=== PATIENT | female | born 1965 | race Caucasian/White ===

== ENCOUNTER 2016-04-11 09:31 | Outpatient (CLI) | payer OTHER ==
[2016-04-11 18:16] LABS: ALBUMIN/GLOBULIN RATIO 1.5 (1.0-2.2); BUN - BLOOD UREA NITROGEN 10 mg/dL (6-20); CARBON DIOXIDE - CO2 29 mmol/L (21-32); CHLORIDE 101 mmol/L (101-111); CHOL/HDL RATIO 3.1 (<4.4); CHOLESTEROL 205 mg/dL; CREATININE 0.6 mg/dL (0.4-1.0); GFR - MDRD 105 (>89); GLUCOSE 82 mg/dL (70-100); HDL CHOLESTEROL 66 mg/dL; LDL/HDL RATIO 1.9 (<4.4); LIPASE 54 U/L (22-51); POTASSIUM 3.9 mmol/L (3.5-5.0); SODIUM 136 mmol/L (135-145); TOTAL PROTEIN 7.1 g/dL (6.7-8.2); TRIGLYCERIDES 73 mg/dL; VLDL CHOLESTEROL 15 mg/dL
[2016-04-11 18:23] LABS: BASOPHILS # (AUTO) 0.1 10^3/uL (0.0-0.1); BASOPHILS % (AUTO) 1.9 %; EOSINOPHILS # (AUTO) 0.2 10^3/uL (0.0-0.7); EOSINOPHILS % (AUTO) 3.6 %; HCT - HEMATOCRIT 38.3 % (37.0-47.0); HGB - HEMOGLOBIN 12.9 g/dL (12.0-16.0); LYMPHOCYTES # (AUTO) 1.5 10^3/uL (1.5-3.5); LYMPHOCYTES % (AUTO) 30.1 %; MEAN CORPUSCULAR HGB CONC 33.7 g/dL (32.0-36.0); MEAN PLATELET VOLUME 8.3 fL (7.9-10.8); MONOCYTES # (AUTO) 0.3 10^3/uL (0.0-1.0); MONOCYTES % (AUTO) 6.7 %; NEUTROPHILS # (AUTO) 2.8 10^3/uL (1.5-6.6); NEUTROPHILS % (AUTO) 57.7 %; NUCLEATED RED BLOOD CELLS AUTO 0.1 /100WBC; RED BLOOD COUNT 4.46 10^6/uL (4.20-5.40); RED CELL DISTRIBUTION WIDTH 12.4 % (12.0-15.0); UNCORRECTED WHITE BLOOD COUNT 4.8 x10^3/uL; WHITE BLOOD COUNT 4.8 x10^3/uL (4.8-10.8)
== END 2016-04-11 09:32 | disposition home or self-care (01) ==
LOC: LAB.F 09:31
PROVIDERS: ATTEND Nurse Practitioner Family
DX: R10.9 Unspecified abdominal pain (principal); Z13.6 Encounter for screening for cardiovascular disorders; F32.9 Major depressive disorder, single episode, unspecified
CPT/HCPCS: 36415; 80053; 80061; 83690; 84443; 85025

== ENCOUNTER 2016-05-20 10:43 | Outpatient (CLI) | payer OTHER | END 2016-05-20 10:44 | disposition home or self-care (01) | DX: Z12.31 Encounter for screening mammogram for malignant neoplasm of breast (principal); Z80.3 Family history of malignant neoplasm of breast ==

== ENCOUNTER 2016-05-20 10:45 | Outpatient (CLI) | payer OTHER | END 2016-05-20 10:46 | disposition home or self-care (01) | DX: R51 Headache (principal); R93.0 Abnormal findings on diagnostic imaging of skull and head, not elsewhere classified ==

== ENCOUNTER 2016-08-01 07:13 | Day surgery (SDC) | payer OTHER ==
[2016-08-01] MEDS ORDERED: LACTATED RINGERS 1,000 ML IV ONE (07:44)
--- NOTE | 2016-08-01 08:15 | HISTORY & PHYSICAL EXAMINATION ---
HPI - History of Present Illness HPI Comment/Other: History of Present Illness: Claudette is here for her first screening colonoscopy. She underwent a bowel prep without difficulty. Past Medical History: Reviewed history from 03/26/2016 and no changes required: Sciatica L>R Depression 2013 History of abnormal Pap, HPV high risk 1993 Hepatitis A infection ETOH - sober since 2013 Past Surgical History: Reviewed history from 03/25/2016 and no changes required: 2013 Colposcopy 2005 Pyelonephritis Family History Summary: Reviewed history and no changes required: 06/12/2016 Mother (biol.) - Has Family History of Hypertension - Entered On: 03/26/2016 Father (biol.) - Has Family History of Heart Disease - Entered On: 03/26/2016 Father (biol.) - Has Family History of Stroke/CVA - Entered On: 03/26/2016 Father (biol.) - Has a father - Entered On: 03/26/2016 Sister (full) - Has Family History of Heart Disease - arrythmia - Entered On: Sister (full) - Has Family History of Alcoholism - Entered On: 03/26/2016 Mother (biol.) - Has Family History of Depression - Entered On: 06/12/2016 Social History: Reviewed history and no changes required: Risk Factors: Smoked Tobacco Use: Former smoker Cigarettes: Yes Year started: 1993 Passive smoke exposure: no Drug use: no HIV high-risk behavior: yes Caffeine use: 3 drinks per day Alcohol use: no Review of Systems See HPI Physical Exam General: well developed, well nourished, in no acute distress Lungs: clear bilaterally to A & P Heart: regular rate and rhythm, S1, S2 without murmurs, rubs, gallops, or clicks Abdomen: bowel sounds positive; abdomen soft and non-tender without masses, organomegaly, or hernias noted Pulses: pulses normal in all 4 extremities Extremities: no clubbing, cyanosis, edema, or deformity noted with normal full range of motion of all joints Cervical Nodes: no significant adenopathy Psych: alert and cooperative; normal mood and affect; normal attention span and concentration Problem # 1: screening colon cancer All questions addressed. Will proceed with colonoscopy. 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 Social & Family Hx - Social History Does the pt smoke?: Yes Smoking Status: Current every day smoker Does the pt drink ETOH?: Yes Does the pt have substance abuse?: No - POLST Patient has POLST: No Meds/Allgy - Home Medications Home Medications: Ambulatory Orders Medication Instructions Recorded Confirmed No Known Home Medications [No 08/01/16 08/01/16 Known Home Medications] - Allergies Allergies/Adverse Reactions: Allergies Allergy/AdvReac Type Severity Reaction Status Date / Time Penicillins Allergy Itching Verified 11/10/14 08:34 codeine AdvReac Nausea Verified 11/10/14 08:34 Exam - Vital Signs Vital Signs: Vital Signs x48h Temp Pulse Resp BP Pulse Ox 08/01/16 07:21 36.4 C L 70 16 106/72 98
[2016-08-01] MEDS ORDERED: fentaNYL 100 MCG/2 ML VIAL IVP ONE (08:16)
[2016-08-01] MEDS ORDERED: MIDAZOLAM 2 MG/2 ML VIAL IVP ONE (08:16)
[2016-08-01 09:32] VITALS: BP 92/49
== END 2016-08-01 07:14 | disposition home or self-care (01) ==
LOC: SDS 07:13
PROVIDERS: ATTEND Surgery
PROC: 0DBK8ZX Excision of Ascending Colon, Via Natural or Artificial Opening Endoscopic, Diagnostic (ICD-10-PCS; principal; 2016-08-01 08:15)
DX: Z12.11 Encounter for screening for malignant neoplasm of colon (principal); D12.2 Benign neoplasm of ascending colon; Z87.891 Personal history of nicotine dependence; Z88.0 Allergy status to penicillin; Z88.5 Allergy status to narcotic agent
CPT/HCPCS: 45380; J7120; 88305

== ENCOUNTER 2016-08-05 07:57 | Outpatient (CLI) | payer OTHER ==
--- NOTE | 2016-08-05 12:11 | Ultrasound Report ---
RIGHT UPPER QUADRANT ULTRASOUND: 08/05/2016 CLINICAL INDICATION: Pain. TECHNIQUE: Real-time scanning was performed with route sales representative static images obtained. FINDINGS: The liver measures 14.2 cm. Hepatic echogenicity appears unremarkable. No solid parenchyma l lesion or intrahepatic biliary dilatation is present. A 6 mm cyst is incidentally noted. The common bile duct measures 6 mm. The gallbladder is normal. The right kidney measures 11 cm, and demonstrate s no hydronephrosis. No free fluid is present. IMPRESSION: INCIDENTAL LIVER CYST. NO EVIDENCE OF CHOLELITHIASIS OR BILIARY OBSTRUCTION. JOB #: [id number] EXT JOB #:[id number]
== END 2016-08-05 07:58 | disposition home or self-care (01) ==
LOC: DI 07:57
PROVIDERS: ATTEND Surgery
DX: R10.9 Unspecified abdominal pain (principal)
CPT/HCPCS: 76705

== ENCOUNTER 2016-10-02 11:25 | Emergency (ER) | payer OTHER ==
[2016-10-02] MEDS ORDERED: KETOROLAC 60 MG/2 ML VIAL IM STA (12:02)
--- NOTE | 2016-10-02 12:05 | ED Physician Documentation ---
History of Present Illness - Stated complaint Stated Complaint: LOW BACK PX - Chief complaint Chief Complaint: Abd Pain - Additonal information Additional information: hx from pt 51 female post menopausal to ER with R flank to RLQ pain worsening X 2 days no fever NVD no hematuria she is concerned she has a kidney stone pt also had a GB sono 1 month ago showing no stones Review of Systems Constitutional: denies: Fever, Chills Cardiac: denies: Chest pain / pressure Respiratory: denies: Dyspnea GI: reports: Abdominal Pain. 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 - Present Medications Home Medications: Ambulatory Orders Medication Instructions Recorded Confirmed HYDROcod/ACETAM 5/325 [Edmonds 5/325] 1 ea PO Q6H PRN #10 tablet 10/02/16 Ibuprofen [Motrin] 400 mg PO Q6H PRN #20 tablet 10/02/16 Sulfamethox/Trimeth 800/160 1 each PO BID #14 tablet 10/02/16 [Bactrim Ds 800/160] - Allergies Allergies/Adverse Reactions: Allergies Allergy/AdvReac Type Severity Reaction Status Date / Time Penicillins Allergy Itching Verified 10/02/16 11:44 codeine AdvReac Nausea Verified 10/02/16 11:44 - Social History Does the pt smoke?: Yes Smoking Status: Current every day smoker Does the pt drink ETOH?: Yes Does the pt have substance abuse?: No - Immunizations Immunizations are current?: Yes - POLST Patient has POLST: No PD ED PE NORMAL - Vitals Vital signs reviewed: Yes - Cardiac Cardiac: RRR - Respiratory Respiratory: No respiratory distress, Clear bilaterally - Abdomen Abdomen: Soft, Non tender - Back Back: No: No CVA TTP (R CVA TTP) - Derm Derm: Normal color - Psych Psych: Normal mood Results - Vitals Vitals: Vital Signs - 24 hr 10/02/16 10/02/16 11:42 13:40 Temperature 36.5 C 36.4 C L Heart Rate 64 61 Respiratory 14 16 Rate Blood Pressure 126/77 104/64 O2 Saturation 98 100 Oxygen O2 Source Room air - Labs Labs: Laboratory Tests 10/02/16 11:45 Urine Color LIGHT YELLOW Urine Clarity CLEAR Urine pH 7.5 Ur Specific Nunda <=1.005 Urine Protein NEGATIVE Urine Glucose (UA) NEGATIVE Urine Ketones NEGATIVE Urine Occult Blood NEGATIVE Urine Nitrite NEGATIVE Urine Bilirubin NEGATIVE Urine Urobilinogen 0.2 (NORMAL) Ur Leukocyte Esterase MODERATE H Urine RBC 0-5 Urine WBC 6-10 H Ur Squamous Epith Cells FEW Squamous Urine Bacteria Rare Ur Microscopic Review INDICATED Urine Culture Comments INDICATED Urine HCG, Qual NEGATIVE - Rads (name of study) CT AP Radiology: See rad report (no stones, no appy, non specific small FF) Departure - Departure Disposition: 01 Home, Self Care Clinical Impression: Pyelonephritis Condition: Good Instructions: ED Kidney Infec Female Follow-Up: Tawny Florez ARNP [Primary Care Provider] - Prescriptions: Sulfamethox/Trimeth 800/160 [Bactrim Ds 800/160] 1 each PO BID #14 tablet Ibuprofen [Motrin] 400 mg PO Q6H PRN #20 tablet PRN Reason: Pain HYDROcod/ACETAM 5/325 [Edmonds 5/325] 1 ea PO Q6H PRN #10 tablet PRN Reason: Severe Pain Comments: The CT scan did not show a kidney stone It also did not show appendicitis or gallbladder problems. The urine test does indicate you have a urine infection so the pain is likely due a kidney infection Forms: Activity restrictions
[2016-10-02] MEDS ORDERED: KETOROLAC 60 MG/2 ML VIAL ONE (12:21)
[2016-10-02 12:51] LABS: BILIRUBIN,URINE NEGATIVE (NEGATIVE); HCG UR QUAL NEGATIVE; PH,URINE 7.5 PH (5.0-7.5); UA w/ MICROSCOPIC CHARGE YES
[2016-10-02 12:52] LABS: UR CULTURE IF IND INDICATED
--- NOTE | 2016-10-02 13:32 | CT Preliminary Report ---
Exam: CT Abdomen/Pelvis W/O IMPRESSION: 1. Small free fluid in the pelvis. Nonspecific. 2. No urolithiasis or hydronephrosis. No other acute CT finding to explain symptoms. [facility] SITE ID: [id number]
--- NOTE | 2016-10-02 13:35 | CT Report ---
EXAM: CT ABDOMEN AND PELVIS (CT KUB) EXAM DATE: 10/02/2016 12:50 PM. CLINICAL HISTORY: R flank pain. COMPARISONS: None. TECHNIQUE: Routine axial helical CT imaging was performed through the abdomen and pelvis without IV c ontrast. Reconstructions: Coronal and sagittal. In accordance with CT protocol optimization, one or more of the following dose reduction techniques w ere utilized for this exam: automated exposure control, adjustment of mA and/or KV based on patient s ize, or use of iterative reconstructive technique. FINDINGS: Lung Bases: There are 2 calcified granulomas in the left lower lobe. Right Kidney/Ureter: No stones, hydronephrosis, or hydroureter. No perinephric fat stranding. Left Kidney/Ureter: No stones, hydronephrosis, or hydroureter. No perinephric fat stranding. Other Solid Organs: Noncontrast images of the solid organs are grossly unremarkable. Gallbladder/Bile Ducts: Unremarkable. Peritoneal Cavity: No free fluid, free air or hemanth adenopathy. Bowel is grossly unremarkable. Pelvic Organs: There is a small-volume free fluid within the posterior right adnexa measuring 2.5 x 1 .6 x 1.7 cm. Urinary bladder is unremarkable. Uterus is normal in size. Vasculature: Unremarkable. Other: None. IMPRESSION: 1. Small free fluid in the pelvis. Nonspecific. 2. No urolithiasis or hydronephrosis. No other acute CT finding to explain symptoms. [facility] Referring Provider Line: [phone] SITE ID: [id number]
[2016-10-02 13:40] VITALS: BP 104/64
== END 2016-10-02 14:01 | disposition home or self-care (01) ==
LOC: ED 11:25
DX: N12 Tubulo-interstitial nephritis, not specified as acute or chronic (principal); F17.200 Nicotine dependence, unspecified, uncomplicated
CPT/HCPCS: 74176; 81001; 81003; 81025; 87086; 96372; 99283

== ENCOUNTER 2016-11-12 14:19 | Outpatient (CLI) | payer OTHER ==
[2016-11-12 17:43] LABS: BASOPHILS # (AUTO) 0.1 10^3/uL (0.0-0.1); EOSINOPHILS # (AUTO) 0.1 10^3/uL (0.0-0.7); EOSINOPHILS % (AUTO) 1.7 %; HCT - HEMATOCRIT 38.9 % (37.0-47.0); HGB - HEMOGLOBIN 13.3 g/dL (12.0-16.0); LYMPHOCYTES # (AUTO) 2.2 10^3/uL (1.5-3.5); LYMPHOCYTES % (AUTO) 27.8 %; MEAN CORPUSCULAR HEMOGLOBIN 28.6 pg (27.0-31.0); MEAN CORPUSCULAR HGB CONC 34.3 g/dL (32.0-36.0); MEAN CORPUSCULAR VOLUME 83.4 fL (81.0-99.0); MEAN PLATELET VOLUME 7.7 fL (7.9-10.8); MONOCYTES # (AUTO) 0.4 10^3/uL (0.0-1.0); MONOCYTES % (AUTO) 5.4 %; NEUTROPHILS % (AUTO) 64.1 %; NUCLEATED RED BLOOD CELLS AUTO 0.1 /100WBC; RED BLOOD COUNT 4.66 10^6/uL (4.20-5.40); RED CELL DISTRIBUTION WIDTH 12.4 % (12.0-15.0); UNCORRECTED WHITE BLOOD COUNT 7.9 x10^3/uL; WHITE BLOOD COUNT 7.9 x10^3/uL (4.8-10.8)
[2016-11-12 17:58] LABS: ALBUMIN/GLOBULIN RATIO 1.5 (1.0-2.2); BILIRUBIN,TOTAL 0.7 mg/dL (0.2-1.0); CALCIUM 9.6 mg/dL (8.5-10.3); CREATININE 0.6 mg/dL (0.4-1.0); POTASSIUM 3.9 mmol/L (3.5-5.0); TOTAL PROTEIN 7.6 g/dL (6.7-8.2)
== END 2016-11-12 14:20 | disposition home or self-care (01) ==
LOC: LAB.F 14:19
PROVIDERS: ATTEND Nurse Practitioner Family
DX: N12 Tubulo-interstitial nephritis, not specified as acute or chronic (principal); R10.9 Unspecified abdominal pain
CPT/HCPCS: 36415; 80053; 82150; 83690; 85025

== ENCOUNTER 2016-11-13 10:02 | Outpatient (CLI) | payer OTHER ==
--- NOTE | 2016-11-13 17:58 | CT Report ---
CT ABDOMEN AND PELVIS WITHOUT CONTRAST: 11/13/2016 CLINICAL INDICATION: Pyelonephritis, abnormal pancreatic enzymes. TECHNIQUE: Axial CT images of the abdomen and pelvis were obtained without oral or intravenous contr ast. COMPARISON: 10/02/2016 FINDINGS: Limited evaluation of the lung bases demonstrates calcified granulomas. ABDOMEN: Allowing for the lack of intravenous contrast, the liver, spleen, kidneys and adrenal gland s appear unremarkable. There is mild inflammation around the pancreas, compatible with pancreatitis. No pseudocyst is seen. The gallbladder is not dilated. No bowel dilatation, free gas, or free flu id is present. No abdominal adenopathy is seen. PELVIS: The pelvic organs appear unremarkable. No distal hydroureter or ureterolithiasis is present . Previously seen free fluid in the pelvis has resolved. Osseous structures demonstrate degenerative changes. IMPRESSION: MILD PERIPANCREATIC INFLAMMATION, COMPATIBLE WITH PANCREATITIS. NO ABNORMAL FLUID COLLE CTION. RESOLUTION OF PREVIOUSLY SEEN FREE FLUID IN THE PELVIS. In accordance with CT protocol optimization, one or more of the following dose reduction techniques w ere utilized for this exam: automated exposure control, adjustment of mA and/or KV based on patient size, or use of iterative reconstructive technique. JOB #: [id number] EXT JOB #:[id number]
== END 2016-11-13 10:03 | disposition home or self-care (01) ==
LOC: DI 10:02
PROVIDERS: ATTEND Nurse Practitioner Family
DX: K85.90 Acute pancreatitis without necrosis or infection, unspecified (principal); R10.9 Unspecified abdominal pain; N12 Tubulo-interstitial nephritis, not specified as acute or chronic
CPT/HCPCS: 74176

== ENCOUNTER 2016-11-25 08:43 | Outpatient (CLI) | payer OTHER ==
--- NOTE | 2016-11-25 10:44 | Nuclear Medicine Report ---
EXAM: HEPATOBILIARY SCAN EXAM DATE: 11/25/2016 10:26 AM. CLINICAL HISTORY: ABDOMINAL PAIN, ELEVATED PANCREATIC ENZYME. COMPARISON: CT 11/13/2016 TECHNIQUE: Following the intravenous administration of 5.2 mCi of Tc99m Mebrofenin, a hepatobiliary s can was done centered on the right upper quadrant region in multiple sequential images and projection s. Morphine sulfate given: No. Four-hour delayed images performed: No. FINDINGS: Normal extraction of tracer from the blood pool indicating normal hepatocellular function. The liver size and shape is grossly within normal limits. There is activity visualized within the bile ducts, gallbladder, and small bowel within the first daily r. No enterogastric bile reflux is observed. IMPRESSION: 1. Patent cystic duct. 2. Patent common bile duct. 3. Negative for acute cholecystitis. 4. No enterogastric bile reflux. [facility] Referring Provider Line: [phone] SITE ID: [id number]
== END 2016-11-25 08:44 | disposition home or self-care (01) ==
LOC: DI 08:43
PROVIDERS: ATTEND Nurse Practitioner Family
DX: R10.9 Unspecified abdominal pain (principal); R74.8 Abnormal levels of other serum enzymes
CPT/HCPCS: 78226; A9537

== ENCOUNTER 2016-11-27 14:12 | Outpatient (CLI) | payer OTHER ==
[2016-11-27 18:50] LABS: AMYLASE 113 U/L (28-100); BILIRUBIN,TOTAL 0.6 mg/dL (0.2-1.0); LIPASE 61 U/L (22-51)
[2016-11-27 18:56] LABS: BILIRUBIN,DIRECT < 0.1 mg/dL (0.1-0.5)
== END 2016-11-27 14:13 | disposition home or self-care (01) ==
LOC: LAB.F 14:12
PROVIDERS: ATTEND Family Medicine
DX: R10.9 Unspecified abdominal pain (principal)
CPT/HCPCS: 36415; 80076; 82150; 83690

== ENCOUNTER 2016-12-09 02:51 | Emergency (ER) | payer OTHER ==
[2016-12-09 03:26] LABS: BILIRUBIN,URINE NEGATIVE (NEGATIVE)
[2016-12-09 03:27] LABS: UA CHARGE (STRIP ONLY) YES; UR CULTURE IF IND NOT INDICATED
--- NOTE | 2016-12-09 05:09 | ED Physician Documentation ---
PD HPI BACK PAIN - Stated complaint Stated Complaint: R BACK PAIN - Chief complaint Chief Complaint: Back Pain - History obtained from History obtained from: Patient - History of Present Illness Timing - onset: Enter time (23:00), Today Timing - duration: Hours Timing - details: Gradual onset, Constant, Waxing and waning Pain level now: 6 Location: Right Quality: Pain Associated symptoms: No: Fever Improves with: Nothing Worsened by: Palpation Similar symptoms before: Other (some aspects of tonights symptoms are similar to previous episodes) Recently seen: Not recently seen Review of Systems Constitutional: reports: Reviewed and negative Cardiac: reports: Reviewed and negative Respiratory: reports: Reviewed and negative GI: reports: Abdominal Pain. 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 - Present Medications Home Medications: Ambulatory Orders Medication Instructions Recorded Confirmed traMADol [Ultram] 50 - 100 mg PO Q6H PRN #20 tablet 12/09/16 - Allergies Allergies/Adverse Reactions: Allergies Allergy/AdvReac Type Severity Reaction Status Date / Time Penicillins Allergy Itching Verified 12/09/16 02:58 codeine AdvReac Nausea Verified 12/09/16 02:58 - Social History Does the pt smoke?: No Smoking Status: Former smoker Does the pt drink ETOH?: Yes Does the pt have substance abuse?: No - Immunizations Immunizations are current?: Yes - POLST Patient has POLST: No PD ED PE NORMAL - Vitals Vital signs reviewed: Yes - General General: Alert and oriented X 3, No acute distress, Well developed/nourished - HEENT HEENT: Moist mucous membranes - Cardiac Cardiac: RRR, No murmur - Respiratory Respiratory: No respiratory distress, Clear bilaterally - Abdomen Abdomen: Soft, Non distended - Back Back: No CVA TTP - Derm Derm: Normal color, Warm and dry, No rash - Extremities Extremities: No edema PD ED PE EXPANDED - Abdomen Abdomen: Tender to palpation, RUQ, RLQ Results - Vitals Vitals: Oxygen O2 Source Room air - Labs Labs: Laboratory Tests 12/09/16 12/09/16 12/09/16 03:00 06:00 06:00 WBC 6.1 RBC 4.42 Hgb 12.7 Hct 37.5 MCV 84.8 MCH 28.7 MCHC 33.9 RDW 13.1 Plt Count 254 MPV 7.5 L Neut # 3.0 Lymph # 2.4 Holt # 0.4 Eos # 0.2 Baso # 0.1 Absolute Nucleated RBC 0.00 Nucleated RBC % 0.0 Sodium 136 Potassium 3.8 Chloride 103 Carbon Dioxide 26 Anion Gap 7.0 BUN 15 Creatinine 0.5 Estimated GFR (MDRD) 130 Glucose 92 Calcium 9.1 Total Bilirubin 0.6 AST 21 ALT 15 Alkaline Phosphatase 72 Total Protein 7.7 Albumin 4.4 Globulin 3.3 Albumin/Globulin Ratio 1.3 Amylase Lipase 64 H Urine Color LT. YELLOW Urine Clarity CLEAR Urine pH 7.0 Ur Specific Carver <=1.005 Urine Protein NEGATIVE Urine Glucose (UA) NEGATIVE Urine Ketones NEGATIVE Urine Occult Blood TRACE-INTA Urine Nitrite NEGATIVE Urine Bilirubin NEGATIVE Urine Urobilinogen 0.2 (NORMAL) Ur Leukocyte Esterase NEGATIVE Ur Microscopic Review NOT INDICATED Urine Culture Comments NOT INDICATED 12/09/16 06:00 WBC RBC Hgb Hct MCV MCH MCHC RDW Plt Count MPV Neut # Lymph # Holt # Eos # Baso # Absolute Nucleated RBC Nucleated RBC % Sodium Potassium Chloride Carbon Dioxide Anion Gap BUN Creatinine Estimated GFR (MDRD) Glucose Calcium Total Bilirubin AST ALT Alkaline Phosphatase Total Protein Albumin Globulin Albumin/Globulin Ratio Amylase 123 H Lipase Urine Color Urine Clarity Urine pH Ur Specific Carver Urine Protein Urine Glucose (UA) Urine Ketones Urine Occult Blood Urine Nitrite Urine Bilirubin Urine Urobilinogen Ur Leukocyte Esterase Ur Microscopic Review Urine Culture Comments - Rads (name of study) CT A/P Radiology: Prelim report reviewed, See rad report PD MEDICAL DECISION MAKING - ED course Complexity details: reviewed old records, reviewed results, re-evaluated patient , considered differential, d/w patient ED course: right flank, back, and upper quadrant pain tonight with right upper and right lower quadrant tenderness on exam. She has had similar symptoms in the past with both unremarkable results as well as pyelonephritis. She says the right lower quadrant tenderness is new for her, and thus CT A/P performed for possible appendicitis. CT shows no acute pathology, d/c home with instructions to return if worse and follow up with PMD Departure - Departure Disposition: 01 Home, Self Care Clinical Impression: Abdominal pain Condition: Good Instructions: ED Abdominal Pain Unkn Cause Follow-Up: Tawny Florez ARNP [Primary Care Provider] - Prescriptions: traMADol [Ultram] 50 - 100 mg PO Q6H PRN #20 tablet PRN Reason: Pain Discharge Date/Time: 12/09/16 09:12
[2016-12-09 06:10] LABS: BASOPHILS # (AUTO) 0.1 10^3/uL (0.0-0.1); BASOPHILS % (AUTO) 0.9 %; EOSINOPHILS # (AUTO) 0.2 10^3/uL (0.0-0.7); EOSINOPHILS % (AUTO) 3.6 %; HCT - HEMATOCRIT 37.5 % (37.0-47.0); HGB - HEMOGLOBIN 12.7 g/dL (12.0-16.0); LYMPHOCYTES # (AUTO) 2.4 10^3/uL (1.5-3.5); LYMPHOCYTES % (AUTO) 39.2 %; MEAN CORPUSCULAR HEMOGLOBIN 28.7 pg (27.0-31.0); MEAN CORPUSCULAR HGB CONC 33.9 g/dL (32.0-36.0); MEAN CORPUSCULAR VOLUME 84.8 fL (81.0-99.0); MEAN PLATELET VOLUME 7.5 fL (7.9-10.8); MONOCYTES # (AUTO) 0.4 10^3/uL (0.0-1.0); MONOCYTES % (AUTO) 6.9 %; NEUTROPHILS % (AUTO) 49.4 %; RED BLOOD COUNT 4.42 10^6/uL (4.20-5.40); RED CELL DISTRIBUTION WIDTH 13.1 % (12.0-15.0); UNCORRECTED WHITE BLOOD COUNT 6.1 x10^3/uL; WHITE BLOOD COUNT 6.1 x10^3/uL (4.8-10.8)
[2016-12-09] MEDS ORDERED: KETOROLAC 60 MG/2 ML VIAL IVP STA (06:13)
[2016-12-09 06:22] LABS: ALBUMIN/GLOBULIN RATIO 1.3 (1.0-2.2); BILIRUBIN,TOTAL 0.6 mg/dL (0.2-1.0); CALCIUM 9.1 mg/dL (8.5-10.3); CREATININE 0.5 mg/dL (0.4-1.0); POTASSIUM 3.8 mmol/L (3.5-5.0); TOTAL PROTEIN 7.7 g/dL (6.7-8.2)
[2016-12-09] MEDS ORDERED: KETOROLAC 30 MG/ML VIAL ONE (06:25)
[2016-12-09] MEDS ORDERED: IOPAMIDOL-300 100 ML VIAL ONE (06:32)
[2016-12-09] MEDS ORDERED: IOPAMIDOL-300 100 ML VIAL IVP ONE (06:50)
--- NOTE | 2016-12-09 07:35 | CT Preliminary Report ---
Exam: CT Abdomen/Pelvis W/ IMPRESSION: 1. Appendix not identified but no pericecal inflammatory changes. 2. No renal calcifications, no hydronephrosis. 3. Diverticulosis. Increased fecal material [facility] SITE ID: [id number]
--- NOTE | 2016-12-09 07:37 | CT Report ---
EXAM: CT ABDOMEN AND PELVIS EXAM DATE: 12/09/2016 07:02 AM. CLINICAL HISTORY: RLQ pain, tenderness. COMPARISONS: None. TECHNIQUE: Routine helical CT imaging was performed through the abdomen and pelvis. IV contrast: 100 cc Isovue-300. Enteric contrast: No. Reconstructions: Coronal and sagittal. In accordance with CT protocol optimization, one or more of the following dose reduction techniques w ere utilized for this exam: automated exposure control, adjustment of mA and/or KV based on patient s ize, or use of iterative reconstructive technique. FINDINGS: Lung Bases: Calcified granuloma Liver: Subcentimeter density too small to characterize near the diaphragm No masses. Gallbladder/Bile Ducts: Unremarkable. Spleen: Normal. Pancreas: Normal. Adrenal Glands: Normal. Kidneys: Normal. No masses or hydronephrosis. Peritoneal Cavity/Bowel: Diverticulosis No free fluid, free air or significant adenopathy. Small righ t lower quadrant, mesenteric lymph nodes less than 1 cm No masses or acute inflammatory process. The appendix is not identified but no pericecal inflammatory changes.. Increased fecal material Pelvic Organs: Normal. The bladder and visualized pelvic organs are within normal limits. Vasculature: No aneurysms or other significant abnormality. Bones: DJD spine Other: None. IMPRESSION: 1. Appendix not identified but no pericecal inflammatory changes. 2. No renal calcifications, no hydronephrosis. 3. Diverticulosis. Increased fecal material [facility] Referring Provider Line: [phone] SITE ID: [id number]
[2016-12-09 09:12] VITALS: BP 124/80
== END 2016-12-09 09:12 | disposition home or self-care (01) ==
LOC: ED 02:51
DX: M54.9 Dorsalgia, unspecified (principal); R10.31 Right lower quadrant pain; R10.11 Right upper quadrant pain; Z87.891 Personal history of nicotine dependence
CPT/HCPCS: 36415; 74177; 80053; 81003; 82150; 83690; 85025; 96374; 99283; 99284; Q9967; 81001; 87086

== ENCOUNTER 2017-12-10 12:52 | Outpatient (CLI) | payer OTHER ==
--- NOTE | 2017-12-10 16:13 | XRAY Report ---
Reason: THORACIC BACK PAIN,CHEST PAIN ,ACUTE Procedure Date: 12/10/2017 Accession Number: [id number] / [id number] Procedure: XR - Thoracic Spine 2 View CPT Code: FULL RESULT: EXAM: THORACIC SPINE RADIOGRAPHY EXAM DATE: 12/10/2017 01:05 PM. CLINICAL HISTORY: Thoracic back pain, chest pain, acute. COMPARISON: None. TECHNIQUE: 2 views. FINDINGS: Alignment: Normal. No spondylolisthesis or scoliosis. Bones: No fractures or bone lesions. Disks: Normal. Disk heights are maintained. Soft Tissues: Normal. The visualized lungs and cardiomediastinal silhouette are normal. IMPRESSION: Normal thoracic spine radiography. [facility]
--- NOTE | 2017-12-10 16:13 | XRAY Report ---
Reason: THORACIC BACK PAIN,CHEST PAIN ,ACUTE Procedure Date: 12/10/2017 Accession Number: [id number] / [id number] Procedure: XR - Chest 2 View X-Ray CPT Code: 36535 FULL RESULT: EXAM: CHEST RADIOGRAPHY EXAM DATE: 12/10/2017 01:04 PM. CLINICAL HISTORY: Thoracic back pain, chest pain, acute. COMPARISON: 02/04/2013 10:20 AM. TECHNIQUE: 2 views. FINDINGS: Lungs/Pleura: No focal opacities evident. No pleural effusion. No pneumothorax. Normal volumes. Mediastinum: Heart and mediastinal contours are unremarkable. Other: None. IMPRESSION: Normal 2-view chest radiography. [facility]
== END 2017-12-10 12:53 | disposition home or self-care (01) ==
LOC: DI 12:52
PROVIDERS: ATTEND Nurse Practitioner Family
DX: M54.6 Pain in thoracic spine (principal); R07.89 Other chest pain
CPT/HCPCS: 71046; 72070

== ENCOUNTER 2018-11-12 12:40 | Outpatient (CLI) | payer OTHER ==
--- NOTE | 2018-11-16 16:35 | Mammography Report ---
Reason: ROUTINE MAMMO Procedure Date: 11/12/2018 Accession Number: [id number] / [id number] Procedure: ROSY - Screening Mammo w/Mason CPT Code: FULL RESULT: EXAM: Screening Mammo w/Mason DATE: 11/12/2018 1:21 PM CLINICAL HISTORY: Routine screening TECHNIQUE: (B) - Bilateral CC and MLO views were obtained. COMPARISON: 05/20/2016, 01/20/2015, 03/10/2013 and 09/19/1809 PARENCHYMAL PATTERN: (VD) - The breasts demonstrate extremely dense parenchyma bilaterally, limiting the sensitivity of mammography. FINDINGS: No significant interval change. There are no suspicious masses, calcifications, or areas of distortion. IMPRESSION: Negative examination. BI-RADS category 1. RECOMMENDATION: (ANNUAL) - Recommend routine annual screening mammography. BI-RADS CATEGORY: (1) - Negative. STANDARD QUALIFYING STATEMENTS: 1. This examination was not reviewed with the aid of Computer-Aided Detection (CAD). 2. A negative or benign imaging report should not preclude biopsy if clinically suspicious findings are present. 3. Dense breasts may obscure an underlying neoplasm. 4. This examination was reviewed with the aid of 3D breast imaging (tomosynthesis).
== END 2018-11-12 12:41 | disposition home or self-care (01) ==
LOC: DI 12:40
PROVIDERS: ATTEND Nurse Practitioner
DX: Z12.31 Encounter for screening mammogram for malignant neoplasm of breast (principal)
CPT/HCPCS: 77063; 77067

== ENCOUNTER 2018-11-12 12:42 | Outpatient (CLI) | payer OTHER ==
--- NOTE | 2018-11-16 13:12 | DEXA Report ---
Reason: POSTMENOPAUSAL Procedure Date: 11/12/2018 Accession Number: [id number] / [id number] Procedure: DEX - Dexa Spine and/or Hip CPT Code: FULL RESULT: EXAM: Dexa Spine and/or Hip DATE: 11/12/2018 12:59 PM CLINICAL HISTORY: POSTMENOPAUSAL TECHNIQUE: Dual energy x-ray absorptiometry (DXA) was performed on a virtual [employer] System. Regions measured are the AP Spine, femoral neck, and if needed forearm. COMPARISON: None. In accordance with the International Society for Clinical Densitometry (ISCD) guidelines, data from previous exams may be reanalyzed using current recommendations and techniques. This is done to allow a more accurate basis for comparison with the current study. FINDINGS: The data for the lumbar spine is as follows: BMD (g/cm/cm) T-SCORE Z-SCORE REGION L1 0.962 -1.4 -0.9 L2 1.000 -1.7 -1.1 L3 1.031 -1.4 -0.9 L4 1.117 -0.7 -0.1 TOTAL 1.031 -1.2 -0.7 NOTE: All evaluable vertebrae are used for classification The data for the hip is as follows: BMD (g/cm/cm) T-SCORE Z-SCORE REGION Neck 0.882 -1.1 -0.3 TOTAL 0.856 -1.2 -0.7 NOTE: The femoral neck or total proximal femur, whichever is lowest, is used for classification. IMPRESSION: THE WHO CLASSIFICATION BASED ON THE INTERNATIONAL REFERENCE STANDARD IS OSTEOPENIA. THE FRACTURE RISK IS INCREASED. RECOMMENDATION: Patients with diagnosis of osteoporosis or osteopenia should have regular bone mineral density assessment. For those eligible for Medicare, routine testing is allowed once every 2 years. Testing frequency can be increased for patients who have rapidly progressing disease or for those who are receiving medical therapy to restore bone mass. COMMENT: World Health Organization (WHO) definitions for osteoporosis and osteopenia: NORMAL BMD: T-score at -1.0 or higher, fracture risk is low OSTEOPENIA BMD: T-score between -1.0 and -2.5, fracture risk is increased. OSTEOPOROSIS BMD: T-score at -2.5 or lower, fracture risk is high. National Osteoporosis Foundation recommends: 1. Obtain adequate dietary calcium (at least 1200 mg per day) and vitamin D (400-800 international units per day). 2. Participate, as appropriate, in regular weightbearing and muscle-strengthening exercise. 3. Avoid tobacco use and reduce alcohol and caffeine intake. 4. For more detailed information see the website at www.NOF.org.
== END 2018-11-12 12:43 | disposition home or self-care (01) ==
LOC: DI 12:42
PROVIDERS: ATTEND Nurse Practitioner
DX: Z13.820 Encounter for screening for osteoporosis (principal); M85.89 Other specified disorders of bone density and structure, multiple sites; Z78.0 Asymptomatic menopausal state
CPT/HCPCS: 77080

== ENCOUNTER 2020-02-21 07:40 | Outpatient (CLI) | payer OTHER ==
[2020-02-21 15:32] LABS: BASOPHILS # (AUTO) 0.1 10^3/uL (0.0-0.1); BASOPHILS % (AUTO) 1.2 %; EOSINOPHILS # (AUTO) 0.2 10^3/uL (0.0-0.7); HGB - HEMOGLOBIN 13.3 g/dL (12.0-16.0); LYMPHOCYTES # (AUTO) 1.9 10^3/uL (1.5-3.5); MEAN CORPUSCULAR HEMOGLOBIN 28.8 pg (27.0-31.0); MEAN CORPUSCULAR VOLUME 92.9 fL (81.0-99.0); MEAN PLATELET VOLUME 9.8 fL (7.9-10.8); MONOCYTES # (AUTO) 0.3 10^3/uL (0.0-1.0); MONOCYTES % (AUTO) 6.4 %; NEUTROPHILS # (AUTO) 2.6 10^3/uL (1.5-6.6); NEUTROPHILS % (AUTO) 51.4 %; PLT - PLATELET COUNT 323 10^3/uL (130-450); RED BLOOD COUNT 4.62 10^6/uL (4.20-5.40); RED CELL DISTRIBUTION WIDTH 12.2 % (12.0-15.0)
[2020-02-21 15:54] LABS: BUN - BLOOD UREA NITROGEN 11 mg/dL (6-20); CALCIUM 9.5 mg/dL (8.5-10.3); CARBON DIOXIDE - CO2 29 mmol/L (21-32); CHLORIDE 100 mmol/L (101-111); CREATININE 0.7 mg/dL (0.4-1.0); GLUCOSE 85 mg/dL (70-100); SODIUM 139 mmol/L (135-145)
[2020-02-21 15:55] LABS: ALBUMIN 4.5 g/dL (3.2-5.5); ALBUMIN/GLOBULIN RATIO 1.4 (1.0-2.2); ALKALINE PHOSPHATASE 74 IU/L (42-121); ALT ALANINE AMINOTRANSFERASE 13 IU/L (10-60); AST ASPARTATE AMINOTRANSFERASE 18 IU/L (10-42); BILIRUBIN,TOTAL 0.7 mg/dL (0.2-1.0); CHOL/HDL RATIO 3.4 (<4.4); CHOLESTEROL 213 mg/dL; HDL CHOLESTEROL 62 mg/dL; LDL CHOLESTEROL,CALCULATED 137 mg/dL; LDL/HDL RATIO 2.2 (<4.4); TOTAL PROTEIN 7.7 g/dL (6.7-8.2); VLDL CHOLESTEROL 14 mg/dL
[2020-02-21 16:39] LABS: FREE T4 (FREE THYROXINE) 1.06 ng/dL (0.58-1.64)
[2020-02-21 20:17] LABS: HEMOGLOBIN A1c% 5.1 % (4.27-6.07)
[2020-02-22 13:35] LABS: HEPATITIS C ANTIBODY NON-REACTIVE (NON-REACTIVE)
== END 2020-02-21 07:41 | disposition home or self-care (01) ==
LOC: LAB.S 07:40
PROVIDERS: ATTEND Registered Nurse
DX: Z01.84 Encounter for antibody response examination (principal); Z78.0 Asymptomatic menopausal state; F32.9 Major depressive disorder, single episode, unspecified; Z13.220 Encounter for screening for lipoid disorders
CPT/HCPCS: 36415; 80053; 80061; 83036; 83721; 84439; 84443; 85025; 86803

== ENCOUNTER 2020-10-02 10:56 | Outpatient (CLI) | payer OTHER ==
--- NOTE | 2020-10-03 13:56 | Mammography Report ---
BILATERAL DIGITAL SCREENING MAMMOGRAM 3D/2D: 10/02/2020 CLINICAL: Family history of breast cancer. Comparison is made to exams dated: 11/12/2018 mammogram, 05/20/2016 mammogram, and 01/20/2015 mammogra m - [facility]. The tissue of both breasts is heterogeneously dense. This may lowe r the sensitivity of mammography. No significant masses, calcifications, or other findings are seen in either breast. There has been no significant interval change. IMPRESSION: NEGATIVE There is no mammographic evidence of malignancy. A 1 year screening mammogram is recommended. This exam was interpreted at Station ID: [id number]. NOTE: For mammograms, a report in lay terms will be sent to the patient. Approximately 15% of breast malignancies will not be visualized mammographically. In the management of a palpable breast mass, a negative mammogram must not discourage biopsy of a clinically suspicious lesion. Electronically Signed By: Jason Gomez M.D. aty/penrad:10/02/2020 13:26:05 ACR BI-RADS Category 1: Negative 3341F PARENCHYMAL PATTERN: (D) - The breast(s) demonstrate(s) heterogeneously dense fibroglandular parshira ma. BI-RADS CATEGORY: (1) - 1 RECOMMENDATION: (ANNUAL) - Recommend routine annual screening mammography. [id number] 1 year screening LATERALITY: (B)
== END 2020-10-02 10:57 | disposition home or self-care (01) ==
LOC: DI.S 10:56
DX: Z12.31 Encounter for screening mammogram for malignant neoplasm of breast (principal); Z80.3 Family history of malignant neoplasm of breast

== ENCOUNTER 2023-02-20 10:52 | Outpatient (CLI) | payer OTHER ==
--- NOTE | 2023-02-20 11:28 | Sleep Patient Instructions ---
Sleep Center Visit Summary - Patient Visit Information Reason for Visit: Initial consult for evaluation of sleep disordered breathing and other sleep issues. - Patient Instructions Instructions Attached: Sleep Study, Sleep Study Home Monitor Additional Instructions: You will be completing a sleep study, either an in-lab polysomnography (PSG) or home sleep study (HST). You will follow-up in the sleep care office after the sleep study is completed to hear the results and talk about therapy, if needed. You will be called by our office staff to schedule this appointment, but you may contact us with any questions. - Clinic Information Contact: [facility] [address] [place] [id number] [email or web address] T: [phone]
--- NOTE | 2023-02-20 11:32 | SLEEP CARE CONSULTATION ---
Information from patient questionnaire entered by Kamilla Swift. I have reviewed and concur with the information entered by Kamilla Swift. This document represents the service I personally performed and the decisions made by me, Lisa Godoy ARNP. History of Present Illness Service Date and Time: 02/20/2023 1052 Reason for Visit: New patient Chief Complaint: reports: Insomnia, Unrefreshed sleep, Fatigue, Frequent awakenings at night Date of Onset: 10YRS Usual bedtime: 1030PM Time it takes to fall asleep: 10-120MIN Snores at night: Yes Observed to quit breathing while asleep: No Sleeps alone due to snoring: No Number of times waking at night: 2-4 Reasons for waking at night: reports: Bathroom, Other (UNKNOWN,DREAMS). denies: Choking, Gasping for air Toss, Turn, or Twitch while sleeping: Yes Recalls having dreams: Yes (occasional nightmares) Usually gets out of bed at: [id number] Feels refreshed in the morning: No Morning headache: Yes (6-7 days a week; sometimes all day) Sleepy or fatigued during the day: Yes Ever fallen asleep while driving: No Takes day naps: No Dreams during day naps: No Prior sleep studies: No Additional HPI information: I had the pleasure of seeing ANAND TOSCANO today regarding the possibility of her having a sleep disorder. Her current complaints are insomnia, unrefreshed sleep, fatigue and frequent night awakenings. She says that since menopause she has been having more difficulties with fatigue. She saw her PCP for this and they are looking into causes. She has been gaining weight and has always been a very normal weight. She is not as active as she used to be in the past. She wakes up with a tense jaw and does grind her teeth. She had a friend give her a Fitbit and it told her she woke up 37 times but she is only aware of waking up 2-4 times on average. She wakes up with a headache nearly every day and they can stay all day. She has been told by her that she snores occasionally. - Parasomnia Symptoms Ever been unable to move upon waking from sleep: No Walks in sleep: No Talks in sleep: Yes Ever acted out dreams in sleep: No Ever felt weak in the knees when startled or emotional: No Bothered by creepy, crawly, restless sensations in legs: No Problems with memory or concentration: No Subjective Initial [place] Sleepiness Scale score: 3 (L103/23/22) Past Medical History Past Medical History: reports: Anxiety, Depression Social History The patient's occupation is a UNEMPLOYED. Patient is and lives in [place]. Have you smoked in the past 12 months: No Cigarettes per day (20/pack): 40 Years of smokin Smoking Pack Years: 18.0 Alcohol use: No Alcohol amount and frequency: CLEAN AND SOBER SINCE 06/18/2014 Caffeine use: Yes Caffeine amount and frequency: 200-300MG EVERY MORNING Family History Family history of sleep disordered breathing: Yes Family Hx Sleep Apnea: Mother: Snoring Allergies and Home Medications Known drug allergies: Yes ( LISTED) Drug allergies reviewed: Yes Home medication list reviewed: Yes (vit C, D3, Multvitamin, Magnesium) Allergy and home medication list: Allergies Penicillins Allergy (Verified 02/20/23 11:01) Itching bupropion Adverse Reaction (Verified 02/20/23 11:17) Unknown codeine Adverse Reaction (Verified 02/20/23 11:01) Nausea Review of Systems Weight gain over past 5 years: 20 Cardiovascular: denies: high blood pressure Gastrointestinal: denies: heartburn Neurological: reports: headaches Psychiatric: reports: anxiety, depression Ear/Nose/Throat: reports: wisdom teeth removed. denies: tonsillectomy Endocrine: reports: sluggishness Musculoskeletal: reports: neck pain, back pain Physical Exam Vital signs obtained and entered by: KAMILLA Hernandez MA Blood Pressure: 115/81 (LEFT ARM) Cuff size: regular Heart Rate: 79 O2 Saturation: 97 Height: 5 ft 8 in Weight: 168 lb 6.4 oz Body Mass Index: 25.6 BMI Classification: Overweight Neck circumference: 14.25 Mouth and throat: narrow oropharynx Soft palate: long Hard palate: normal Uvula: long, edematous Uvula visualization: 25% Mallampati Class III Tongue: normal in size Tonsils: 2+ Neck: normal w/o lymphadenopathy or thyromegaly Heart: regular rate and rhythm Lungs: clear bilaterally Neurologic: no focal deficits Impression and Plan 1. Suspected Obstructive Sleep Apnea-Hypopnea Syndrome, as suggested by a history of irregular snoring, morning headache, frequent awakening during the night and unrefreshed sleep. Narrow oropharynx and obesity are common predisposing factors for obstructive sleep apnea-hypopnea syndrome. I recommend proceeding to polysomnography to confirm the diagnosis and to assess severity. If the patient has significant sleep disordered breathing, a manual CPAP titration study will also be performed to find the optimal treatment pressure. I informed the patient of what the sleep studies involve and after some discussion, obtained agreement to proceed. The pathophysiology of obstructive sleep apnea-hypopnea syndrome was discussed with the patient and health risks of cardiovascular and cerebrovascular disease if not treated. Risks of drowsy driving discussed in detail and patient advised to avoid long distance driving and to pulley worker at the first sign of drowsiness. Patient agreed to plan. * Schedule polysomnography. * Avoid long distance driving or driving when feeling sleepy. * Avoid alcohol, sedative and muscle relaxant around bedtime. * Attempt to lose weight. * Review instructions provided by trained office staff on how to prepare for the sleep study. * Return for follow-up after sleep study completed. Counseling Topics: Weight loss health impact Plan: PSG Visit Type: In Office Time Spent with Patient (minutes): 32 Provider Statement: I spent 100% of the Face to Face Visit with the patient with greater than 50% spent counseling the patient and coordination of care.
[2023-02-20 11:35] VITALS: BP 115/81; O2SAT 97
== END 2023-02-20 10:53 | disposition home or self-care (01) ==
LOC: SC 10:52
PROVIDERS: ATTEND Nurse Practitioner Family
DX: R53.83 Other fatigue (principal); G47.8 Other sleep disorders; R51.9 Headache, unspecified; R06.83 Snoring; F32.A Depression, unspecified; E66.3 Overweight; Z68.25 Body mass index [BMI] 25.0-25.9, adult; Z87.891 Personal history of nicotine dependence
CPT/HCPCS: 99203; 99212

== ENCOUNTER 2023-04-18 20:35 | Outpatient (CLI) | payer OTHER | END 2023-04-18 20:36 | disposition home or self-care (01) | LOC: SC 20:35 | PROVIDERS: ATTEND Nurse Practitioner Family | DX: G47.31 Primary central sleep apnea (principal); G47.33 Obstructive sleep apnea (adult) (pediatric); G47.61 Periodic limb movement disorder | CPT/HCPCS: 95810 ==

== ENCOUNTER 2023-04-25 11:35 | Outpatient (CLI) | payer OTHER | END 2023-04-25 11:36 | disposition home or self-care (01) | LOC: LAB.S 11:35 | PROVIDERS: ATTEND Registered Nurse | DX: E55.9 Vitamin D deficiency, unspecified (principal); Z83.49 Family history of other endocrine, nutritional and metabolic diseases; R53.83 Other fatigue | CPT/HCPCS: 36415; 82306; 82607; 83090 ==

== ENCOUNTER 2023-04-30 12:50 | Outpatient (CLI) | payer OTHER ==
--- NOTE | 2023-04-30 12:39 | SLEEP CARE CONSULTATION ---
Information from patient questionnaire entered by Aliya Swift. I have reviewed and concur with the information entered by Aliya Swift. This document represents the service I personally performed and the decisions made by me, Lisa Godoy ARNP. History of Present Illness Service Date and Time: 04/30/2023 1140 Initial [place] Sleepiness Scale score: 3 (L103/23/22) Current [place] Sleepiness Scale score: 3 (04/30/23) Additional HPI information: ANAND TOSCANO returns via video appointment for follow up and results of the recently performed polysomnography. The sleep study showed mild central and obstructive sleep apnea with an average AHI of 7.2 and henri oxygen saturation of 88%. She also had moderate PLMs contributing to sleep fragmentation. I explained the pathophysiology behind obstructive sleep apnea. We then spent quite a bit of time discussing different treatment options. For mild obstructive sleep apnea, surgery and oral appliance are alternatives to nasal CPAP therapy but in moderate or severe cases, nasal CPAP is the most effective and reliable treatment. Because apnea is primarily in supine position, then positional management therapy could be effective. Methods discussed such as positioning with pillows, using a T-shirt with tennis balls in the back or commercial products that have a pillow format on back to prevent supine sleep. I reviewed the impact of weight changes on sleep apnea and strongly recommended losing weight. After some discussion, the patient opted to go with the nasal CPAP therapy. Nasal autoCPAP set at 4-15 cmH20 will be ordered with rationale explained. A manual titration study will be ordered if unable to find optimal pressure with office adjustments. I explained how CPAP machine works and what to expect when using the machine. Using CPAP every night in order to get used to it was emphasized. Patient advised to put CPAP mask on before getting into bed so as not to fall asleep without CPAP. To assist acclimation to CPAP use, it could also be used for a short time during day while reading or watching TV. The patient was instructed to call the CPAP supplier to discuss any mechanical problem that may occur. If the mask given is uncomfortable or is difficult to keep on through the night even with adjustment, contact the CPAP supplier as many will replace with another mask style if notified before 30 days. If snoring or perceives is not getting enough air or too much air from the machine, notify this office. Patient does not drink alcohol. Patient was cautioned about risks of drowsy driving until sleepiness symptoms resolve. Patient denies drowsy driving. Sleep Study - Results Type of Sleep Study: Polysomnography (COMPLETED 04/18/23) Prior sleep studies: No Polysomnography/Home Sleep Study results: IMPRESSION: The quality of the study is good. The patient had slightly reduced sleep efficiency due to two prolonged awakenings during the night. Except for mild sleep fragmentation, the sleep architecture was normal. Respiratory monitoring showed mild central and obstructive sleep apnea-hypopnea (AHI = 7.2) associated with frequent arousals, oxyhemoglobin desaturation and mild hypoxia (henri oxygen saturation of 88%). The respiratory events occurred almost exclusively during supine sleep (supine AHI = 16.2; non- supine = 2.70). Snore was loud in intensity. There was moderate periodic leg movement of sleep contributing to the sleep fragmentation. Cardiac rhythm was normal sinus rhythm without significant arrhythmia. No abnormal behavior (parasomnia) observed. Allergies and Home Medications Known drug allergies: Yes (as listed) Drug allergies reviewed: Yes Home medication list reviewed: Yes (no changes) Allergy and home medication list: Allergies Penicillins Allergy (Verified 04/28/23 11:19) Itching bupropion Adverse Reaction (Verified 04/28/23 11:19) Unknown codeine Adverse Reaction (Verified 04/28/23 11:19) Nausea Review of Systems Review of systems same as previous: Yes (NO CHANGE) Physical Exam Vital signs obtained and entered by: ALIYA Hernandez MA Height: 5 ft 8 in (PER PT) Weight: 168 lb (PER PT) Body Mass Index: 25.5 BMI Classification: Overweight Impression and Plan 1. Obstructive and Central Sleep Apnea-Hypopnea Syndrome, mild, with lowest oxygen saturation of 88%. Obviously this is the cause of the patients symptoms of unrefreshed sleep, and excessive daytime sleepiness. Positive pressure therapy could benefit anxiety and depression. As mentioned above, the patient will be started on nasal autoCPAP therapy with pressure set at 4-15 cmH2O. A manual titration study will be completed if unable to find optimal treatment pressure with office adjustments. Compliance guidelines also reviewed. A copy of compliance guidelines will be given for reference at check out. Because the apnea is more severe supine, I instructed to avoid sleeping supine using pillow positioning until able to start CPAP use. 2. Hypoxemia, mild, with a henri oxygen saturation of 88% and 1.3 minutes spent under 90%. The baseline oxygen saturation was normal with an average oxygen saturation of 93%. 3. Periodic limb movement, moderate, that did not fragment patients sleep. Periodic limb movement of sleep (PLMS) is characterized by episodes of repetitive limb movements that occur during sleep and usually involve the lower limbs. The etiology is unknown. Sleep hygiene methods can also improve sleep as well as lifestyle changes such as regular exercise. Patient was advised that no treatment is needed at this time. If symptoms increase, then further evaluation is indicated. * Nasal auto CPAP therapy, pressure at 4-15 cm H2O. * Maintain a healthy weight * Avoid alcohol consumption near bedtime. * Avoid supine sleep until using CPAP. * The patient is again cautioned about driving until sleepiness completely resolves. * Return one month after CPAP obtained. I will assess response to therapy and compliance at that time. Counseling Topics: Weight control Prescriptions: Auto CPAP Visit Type: Telehealth Video Video Type: Doximity Patient Location: Home Location of Provider: Office Patient agrees and consents to this telehealth visit type: Yes Time Spent with Patient (minutes): 26 Provider Statement: I spent 100% of the Telehealth Video Call with the patient with greater than 50% spent counseling the patient and coordination of care.
== END 2023-04-30 12:51 | disposition home or self-care (01) ==
LOC: SC 12:50
PROVIDERS: ATTEND Nurse Practitioner Family
DX: G47.31 Primary central sleep apnea (principal); G47.33 Obstructive sleep apnea (adult) (pediatric); R09.02 Hypoxemia; G47.61 Periodic limb movement disorder; E66.3 Overweight; Z68.25 Body mass index [BMI] 25.0-25.9, adult

== ENCOUNTER 2023-05-12 13:45 | Outpatient (CLI) | payer OTHER ==
--- NOTE | 2023-05-13 09:00 | Mammography Report ---
BILATERAL DIGITAL SCREENING MAMMOGRAM 3D/2D: 05/12/2023 CLINICAL: Routine screening. Comparison is made to exams dated: 10/02/2020 mammogram, 11/12/2018 mammogram, and 05/20/2016 mammogram - [facility]. Both breasts are heterogeneously dense, which may obscure small masses (category c / 51-75% glandular tissue). No significant masses, calcifications, or other findings are seen in either breast. There has been no significant interval change. IMPRESSION: NEGATIVE There is no mammographic evidence of malignancy. A 1 year screening mammogram is recommended. Based on the Tyrer Cuzick model (a risk assessment model) the patient's lifetime risk is 10.8% and he r 10 year risk is 4.0%. According to the ACR, ACS, and NCCN guidelines, an annual breast MRI exam monse ng with mammogram is recommended if the patient's lifetime risk is 20% or greater. This exam was interpreted at Station ID: [id number]. NOTE: For mammograms, a report in lay terms will be sent to the patient. Approximately 15% of breast malignancies will not be visualized mammographically. In the management of a palpable breast mass, a negative mammogram must not discourage biopsy of a clinically suspicious lesion. Electronically Signed By: Tiarra moura/edna:05/12/2023 15:51:03 ACR BI-RADS Category 1: Negative 3341F PARENCHYMAL PATTERN: (D) - The breast(s) demonstrate(s) heterogeneously dense fibroglandular parthomy ma. BI-RADS CATEGORY: (1) - 1 RECOMMENDATION: (ANNUAL) - Recommend routine annual screening mammography. [id number] 1 year screening LATERALITY: (B)
== END 2023-05-12 13:46 | disposition home or self-care (01) ==
LOC: DI.S 13:45
DX: Z12.31 Encounter for screening mammogram for malignant neoplasm of breast (principal); R92.333 Mammographic heterogeneous density, bilateral breasts